=== PATIENT | female | born 1985 | race Hispanic/Latino ===

== ENCOUNTER 2018-06-04 22:05 | Emergency (ER) | payer SELFPAY ==
[2018-06-04] MEDS: Sodium Chloride 0.9% 1,000 ML IV ONE (22:52)
--- NOTE | 2018-06-04 22:55 | C.PDOC ---
History Of Present Illness 33 y/o female presents to the ER c/o abdominal bloating, associated with nausea, constipation and vomiting. Pt reports this has been on-going since April but recently worsened in the past 1 week. She states she is unable to tolerate PO. Patient's last bowel movement was x2 days ago. She denies fever, chills, diarrhea, dysuria, hematuria, vaginal bleeding/discharge. Time Seen by Provider: 06/04/18 22:17 Chief Complaint (Nursing): Abdominal Pain History Per: Patient History/Exam Limitations: no limitations Onset/Duration Of Symptoms: Days (x1week), Worse Since Current Symptoms Are (Timing): Still Present Severity: Moderate Past Medical History Reviewed: Historical Data, Nursing Documentation, Vital Signs Vital Signs: Last Vital Signs Temp 98.4 F 06/04/18 22:11 Pulse 99 H 06/04/18 22:11 Resp 20 06/04/18 22:11 BP 122/86 06/04/18 22:11 Pulse Ox 100 06/04/18 22:11 - Medical History PMH: No Chronic Diseases Family History: States: No Known Family Hx - Social History Hx Alcohol Use: Yes Hx Substance Use: No - Immunization History Hx Tetanus Toxoid Vaccination: No Hx Influenza Vaccination: Yes Hx Pneumococcal Vaccination: No Review Of Systems Constitutional: Negative for: Fever, Chills Gastrointestinal: Positive for: Nausea, Vomiting, Constipation, Other (abdominal bloating ). Negative for: Abdominal Pain, Diarrhea Genitourinary: Negative for: Dysuria, Hematuria, Vaginal Discharge, Vaginal Bleeding Skin: Negative for: Rash Physical Exam - Physical Exam Appears: Well, Non-toxic, In Acute Distress (uncomfortable ), Other (actively vomiting ) Skin: Warm, Dry Oral Mucosa: Moist Chest: Symmetrical Cardiovascular: Rhythm Regular Respiratory: Normal Breath Sounds, No Rales, No Rhonchi, No Wheezing Gastrointestinal/Abdominal: Bowel Sounds, Soft, Tenderness (mild tenderness to palpation at epigastric and right periumbilical area ), No Distention, No Guarding, No Rebound Neurological/Psych: Oriented x3 ED Course And Treatment - Laboratory Results Result Diagrams: 06/04/18 22:52 06/04/18 22:52 O2 Sat by Pulse Oximetry: 100 (RA) Pulse Ox Interpretation: Normal - Other Rad obs series Xray X-Ray: Interpreted by Me, Viewed By Me (no air fluid levels) Progress Note: Blood work, UA, Upreg and obstructive series ordered and reviewed. Patient given IV NS bolus, IV zofran. 12:20am - Patient reassessed, is resting comfortably and states she feels better. On exam, abdomen is soft and nontender. Patient given Rxs for Colace, Mag citrate and Phenergan. She was instructed to follow up in medical clinic in 1-2 days, and with GI as soon as possible. She understands she should return to ED if symptoms worsen. Reevaluation Time: 23:20 Reassessment Condition: Unchanged (Patient continues to have nausea, vomiting and abdominal burning - IV reglan and IV pepcid given.) Disposition Counseled Patient/Family Regarding: Studies Performed, Diagnosis, Need For Followup, Rx Given - Disposition Referrals: [facility] [Outside] Disposition: HOME/ ROUTINE Disposition Time: 00:20 Condition: STABLE Additional Instructions: FOLLOW UP WITH MEDICAL CLINIC IN 1-2 DAYS, AND WITH DISTRIBUTION AGENT WITHIN 1 WEEK DRINK PLENTY OF CLEAR FLUIDS USE MEDICATIONS NEEDED RETURN TO ER IF SYMPTOMS WORSEN Prescriptions: Docusate [Colace] 100 mg PO DAILY #30 cap Magnesium Citrate [Citrate of Mag] 300 ml PO ONCE PRN #1 bottle PRN Reason: Constipation Promethazine [Phenergan Tab] 25 mg PO Q6 PRN #15 tab PRN Reason: Nausea/Vomiting Instructions: Constipation, Adult (DC), Nausea and Vomiting, Adult (DC) Forms: [employer] (Azeri) Print Language: SINHALA - Clinical Impression Clinical Impression: Abdominal pain, Nausea, Vomiting, Constipation - Scribe Statement The provider has reviewed the documentation as recorded by the Fidel Martinez Do Provider Attestation: All medical record entries made by the Johnibblake were at my direction and personally dictated by me. I have reviewed the chart and agree that the record accurately reflects my personal performance of the history, physical exam, medical decision making, and the department course for this patient. I have also personally directed, reviewed, and agree with the discharge instructions and disposition.
[2018-06-04 22:56] LABS: BASO # 0.1 K/uL (0.0-0.2); BASO % 1.1 % (0.0-2.0); EOS # 0.1 K/uL (0.0-0.7); EOS % 1.4 % (0.0-4.0); HEMOGLOBIN 14.1 g/dL (11.0-16.0); LYMPH # 2.1 K/uL (1.0-4.3); LYMPH % 26.7 % (20.0-40.0); MEAN CELL VOLUME 92.1 fL (81.0-99.0); MEAN CORPUSCULAR HEMOGLOBIN 30.8 pg (27.0-31.0); MEAN CORPUSCULAR HGB CONC 33.4 g/dL (33.0-37.0); MEAN PLATELET VOLUME 9.2 fL (7.2-11.7); MONO # 0.4 K/uL (0.0-0.8); MONO % 5.5 % (0.0-10.0); NEUT # 5.2 K/uL (1.8-7.0); NEUT % 65.3 % (50.0-75.0); RBC 4.57 Mil/uL (3.80-5.20); RED CELL DISTRIBUTION WIDTH 12.2 % (11.5-14.5)
[2018-06-04 23:18] LABS: ALB/GLOB RATIO 1.4 (1.0-2.1); ALBUMIN 4.7 g/dL (3.5-5.0); ALT/SGPT 19 U/L (9-52); AST/SGOT 25 U/L (14-36); BLOOD UREA NITROGEN 12 mg/dL (7-17); CALCIUM 9.7 mg/dl (8.6-10.4); GFR NON-AFRICAN AMERICAN > 60; LIPASE 46 U/L (23-300)
[2018-06-04 23:22] LABS: HCG,QUALITATIVE URINE NEGATIVE (NEGATIVE)
[2018-06-04 23:30] LABS: SQUAMOUS EPITHIAL 22 /hpf (0-5); URINE BACTERIA FEW (<OCC); URINE BILIRUBIN NEGATIVE (NEGATIVE); URINE BLOOD NEGATIVE (NEGATIVE); URINE CLARITY Hazy (Clear); URINE COLOR Yellow (YELLOW); URINE GLUCOSE (UA) NORMAL (Normal); URINE LEUKOCYTE ESTERASE NEG Leu/uL (Negative); URINE PROTEIN NEGATIVE (NEGATIVE); URINE UROBILINOGEN NORMAL mg/dL (0.2-1.0)
[2018-06-05] MEDS: Potassium Chloride 20 mEq ER Tab PO STA (00:19)
[2018-06-05] MEDS ORDERED: Potassium Chloride 20 mEq ER Tab PO ONE (00:20)
[2018-06-05 00:26] VITALS: BP 116/67; PULSE 73; RESP 18; TEMP 98.1
--- NOTE | 2018-06-05 10:53 | RAD ---
Date of service: 06/04/2018 PROCEDURE: Radiographs of the chest and abdomen (obstructive series) HISTORY: ABD DISTENSION, NAUSEA/VOMITING COMPARISON: No prior. TECHNIQUE: AP radiograph of the chest, with upright and supine radiographs of the abdomen. FINDINGS: CHEST: Lungs: Clear. Cardiovascular: Normal size heart. No pulmonary vascular congestion. No aortic atherosclerotic calcification present Pleura: No pleural fluid. No pneumothorax. Other findings: None. ABDOMEN AND PELVIS: Bowel: Unremarkable bowel gas pattern. No evidence of mechanical obstruction. Free air: None. Bones: Unremarkable. Other findings: None. IMPRESSION: Unremarkable radiographs of chest and abdomen. No evidence of mechanical bowel obstruction.
[2018-06-10 16:33] VITALS: O2SAT 100
== END 2018-06-05 00:32 | disposition home or self-care (01) ==
LOC: C.ER 22:05
DX: R10.13 Epigastric pain (principal); R11.2 Nausea with vomiting, unspecified
CPT/HCPCS: 74022; 80053; 81001; 83690; 84703; 85025; 96361; 96374; 96375; 99284; J2405; J2765; J7030

== ENCOUNTER 2018-10-02 19:01 | Emergency (ER) | payer MEDICAID ==
[2018-10-02 19:09] VITALS: BP 125/78; PULSE 97; RESP 16; TEMP 98.6; O2SAT 97
[2018-10-02] MEDS ORDERED: Naproxen 550 mg Tab PO STA (19:36)
[2018-10-02] MEDS ORDERED: Bacitracin 500 Units/gm Oint Foilpak UD ONE (19:40)
[2018-10-02] MEDS ORDERED: Naproxen 550 mg Tab PO ONE (19:41)
--- NOTE | 2018-10-02 20:31 | C.PDOC ---
History Of Present Illness 33 year old female presents to the ED complaining of left thumb pain for 9 days but worsening for the past 2 days. States she does not recall if she had any trauma to that area. Reports pain is 6/10 and radiates to the wrist. Reports associated numbness and tingling to left thumb. States she has been taking Advil with minimal relief. Admits to typing and writing often on social media. She is right hand dominant. Time Seen by Provider: 10/02/18 19:11 Chief Complaint (Nursing): Finger,Hand,&Wrist History Per: Patient History/Exam Limitations: no limitations Onset/Duration Of Symptoms: Days (9) Current Symptoms Are (Timing): Still Present Quality: Burning Severity: Severe Exacerbating Factor(s): Movement Recent travel outside of the [place]: No Past Medical History Reviewed: Historical Data, Nursing Documentation, Vital Signs Vital Signs: Last Vital Signs Temp 98.6 F 10/02/18 19:05 Pulse 97 H 10/02/18 19:05 Resp 16 10/02/18 19:05 BP 125/78 10/02/18 19:05 Pulse Ox 97 10/02/18 19:05 - Medical History PMH: Migraine Surgical History: No Surg Hx Family History: States: No Known Family Hx - Social History Hx Alcohol Use: Yes Hx Substance Use: No - Immunization History Hx Tetanus Toxoid Vaccination: No Hx Influenza Vaccination: Yes Hx Pneumococcal Vaccination: No Review Of Systems Constitutional: Negative for: Fever, Chills Musculoskeletal: Positive for: Hand Pain (left thumb). Negative for: Neck Pain, Arm Pain Skin: Negative for: Rash, Bruising Neurological: Positive for: Numbness (left thumb ), Other (tingling in left thumb ). Negative for: Headache, Dizziness Physical Exam - Physical Exam Appears: Non-toxic, No Acute Distress Skin: Warm, Dry, No Rash Head: Atraumatic, Normacephalic Eye(s): bilateral: Normal Inspection Neck: Normal ROM, Supple Chest: Symmetrical Cardiovascular: Rhythm Regular Respiratory: Normal Breath Sounds, No Rales, No Rhonchi, No Wheezing Extremity: No Normal ROM (limited secondary to pain, painful abduction of left thumb), Tenderness (tenderness along radial aspect of wrist), Capillary Refill (less than 2 sec to left hand ), No Deformity, No Swelling, Other (negative phalen test ) Extremity: Bilateral: Atraumatic, Normal Color And Temperature Pulses: Left Brachial: Normal, Right Brachial: Normal, Left Radial: Normal, Right Radial: Normal Neurological/Psych: Oriented x3, Normal Speech, Normal Motor, Normal Sensation Gait: Steady ED Course And Treatment O2 Sat by Pulse Oximetry: 97 (RA) Pulse Ox Interpretation: Normal - Other Rad left thumb X-Ray: Viewed By Me, Read By Radiologist Interpretation: Accession No. : [id number]. Patient Name / ID : ARACELI SANTIAGO / [id number]. Exam Date : 10/02/2018 19:39:05 ( Approved ). Study Comment : Sex / Age : F / 33Y. Creator : Feli Del Valle MD. Dictator : Feli Del Valle MD. Flight Service Agent : Set Key Driver : Feli Del Valle MD. Approver2 : Report Date : 10/02/2018 21:04:43. My Comment : . Date of service: 10/02/2018. PROCEDURE: Left Thumb radiographs. HISTORY: pain. COMPARISON: None. TECHNIQUE: AP radiograph of the left hand, as well as spot oblique and lateral images of thumb were obtained. 4 views obtained. FINDINGS: LEFT THUMB: Normal left thumb, without acute displaced fracture or focal lesion. Remainder of the left hand (as seen on the AP view) grossly unremarkable. JOINTS: Normal. SOFT TISSUES: Normal. OTHER FINDINGS: None. IMPRESSION: No acute fracture or dislocation. Medical Decision Making Medical Decision Making: Plan - Naproxen 550mg PO - XR left hand XR is negative for fractures or dislocations. Thumb spica splint applied to immobilize thumb since current brace was not beneficial. On reassessment, patient is resting comfortably, and is in no acute distress. Patient was instructed to follow up with physician/clinic in 1-2 days for further evaluation. MRI may be warranted if pain persists. Disposition Counseled Patient/Family Regarding: Studies Performed, Diagnosis, Need For Followup, Rx Given - Disposition Referrals: Pablito Laura MD [Medical Doctor] - Disposition: HOME/ ROUTINE Disposition Time: 20:35 Condition: IMPROVED Additional Instructions: Continue Naproxen twice a day as needed for pain Rest, Ice, Compression, and Elevation Follow up with PMD/ [facility]hto in 1-2 days if pain persists Return to the ED if symptoms worsen Prescriptions: Naproxen [Naprosyn] 500 mg PO BID #30 tablet Instructions: De Quervain's Tenosynovitis Forms: [employer] (Yi) - Clinical Impression Clinical Impression: Pain of left thumb, Tenosynovitis, de Quervain - PA / PLASTER MODEL AND MOLD MAKER / Resident Statement MD/DO has reviewed & agrees with the documentation as recorded. - Scribe Statement The provider has reviewed the documentation as recorded by the Johnibblake Bradshaw All medical record entries made by the Fidel were at my direction and personally dictated by me. I have reviewed the chart and agree that the record accurately reflects my personal performance of the history, physical exam, medical decision making, and the department course for this patient. I have also personally directed, reviewed, and agree with the discharge instructions and disposition.
--- NOTE | 2018-10-02 21:08 | RAD ---
Date of service: 10/02/2018 PROCEDURE: Left Thumb radiographs. HISTORY: pain COMPARISON: None. TECHNIQUE: AP radiograph of the left hand, as well as spot oblique and lateral images of thumb were obtained. 4 views obtained. FINDINGS: LEFT THUMB: Normal left thumb, without acute displaced fracture or focal lesion. Remainder of the left hand (as seen on the AP view) grossly unremarkable. JOINTS: Normal. SOFT TISSUES: Normal. OTHER FINDINGS: None. IMPRESSION: No acute fracture or dislocation.
== END 2018-10-02 20:44 | disposition home or self-care (01) ==
LOC: C.ER 19:01
DX: M65.4 Radial styloid tenosynovitis [de Quervain] (principal); M79.645 Pain in left finger(s)

== ENCOUNTER 2018-10-12 19:26 | Emergency (ER) | payer MEDICAID ==
[2018-10-12 20:00] VITALS: TEMP 98.2
[2018-10-12] MEDS ORDERED: Sodium Chloride 0.9% 1,000 ML IV ONE (20:33)
[2018-10-12] MEDS ORDERED: Iohexol 240 (50 ml) PO ONE (20:35)
--- NOTE | 2018-10-12 20:37 | C.PDOC ---
History Of Present Illness 33 year old female presents to the ED for evaluation of black tarry stools that started at 16:30 today. Patient denies fever, chills, headache, dizziness, CP, SOB, palpitations, nausea, vomit, diarrhea, abdominal pain, weakness, numbness. Chief Complaint (Nursing): GI Problem History Per: Patient History/Exam Limitations: no limitations Onset/Duration Of Symptoms: Hrs (16:30) Current Symptoms Are (Timing): Still Present Number Of Bleeding Episodes: One Quality Of Discomfort: "Pain" Associated Symptoms: Melena Recent travel outside of the [place]: No Additional History Per: Patient Past Medical History Reviewed: Historical Data, Nursing Documentation, Vital Signs Vital Signs: Last Vital Signs Temp 98.2 F 10/12/18 19:46 Pulse 90 10/12/18 19:46 Resp 20 10/12/18 19:46 BP 127/82 10/12/18 19:46 Pulse Ox 98 10/12/18 19:46 Primary Care Provider: Shelia Costello R - Medical History PMH: Migraine Surgical History: No Surg Hx Family History: States: Unknown Family Hx - Social History Hx Alcohol Use: Yes Hx Substance Use: No - Immunization History Hx Tetanus Toxoid Vaccination: No Hx Influenza Vaccination: Yes Hx Pneumococcal Vaccination: No Review Of Systems Constitutional: Negative for: Fever, Chills Eyes: Negative for: Vision Change Cardiovascular: Negative for: Chest Pain, Palpitations Respiratory: Negative for: Cough, Shortness of Breath Gastrointestinal: Positive for: Melena. Negative for: Nausea, Vomiting, Abdominal Pain Skin: Negative for: Rash Neurological: Negative for: Weakness, Numbness, Headache, Dizziness Physical Exam - Physical Exam Appears: Non-toxic, No Acute Distress Skin: Normal Color, Warm, Dry Head: Atraumatic, Normacephalic Eye(s): bilateral: Normal Inspection Oral Mucosa: Moist Neck: Normal ROM, Supple Chest: Symmetrical Cardiovascular: Rhythm Regular Respiratory: Normal Breath Sounds, No Rales, No Rhonchi, No Wheezing Gastrointestinal/Abdominal: Soft, Tenderness (bilateral lower quadrants, moslty hypogastric), No Guarding, No Rebound Rectal: Heme Negative, Other (no active bleeding) Extremity: Normal ROM, No Tenderness, No Swelling Neurological/Psych: Oriented x3, Normal Speech, Normal Cognition Gait: Steady ED Course And Treatment - Laboratory Results Result Diagrams: 10/12/18 20:47 10/12/18 20:47 O2 Sat by Pulse Oximetry: 98 (ON RA) Pulse Ox Interpretation: Normal - CT Scan/US CT abd/pelvis Other Rad Studies (CT/US): Read By Radiologist, Radiology Report Reviewed CT/US Interpretation: EXAM: CT Abdomen and Pelvis with IV contrast. CLINICAL HISTORY: PATIEN WITH HX OF GI PROBLEMS PASSED LARGE BLOOD CLOT TODAY TOLD TO REPORT TO ER. TECHNIQUE: Axial computed tomography images of the abdomen and pelvis with intravenous contrast. 0.00 mGy-cm. CONTRAST: With; OMNI 240 & VISI 320 100MLS. COMPARISON: None provided. FINDINGS: LUNG BASES: Minimal atelectasis near the lung bases. LIVER: Mild diffuse fatty infiltration of liver. GALLBLADDER AND BILE DUCTS: The gallbladder appears within normal limits. No radioopaque gallstones are seen. No biliary ductal dilatation is evident. PANCREAS: Unremarkable. SPLEEN: Unremarkable. ADRENAL GLANDS: Unremarkable. KIDNEYS, URETERS, AND BLADDER: The kidneys appear within normal limits. There is no hydronephrosis or hydroureter. No urinary calculi are seen. STOMACH AND BOWEL: Unremarkable appearance of the stomach and bowel. No evidence of bowel obstruction. No evidence suggesting enteritis or colitis. APPENDIX: Normal appendix in the right lower quadrant. PERITONEUM: No free fl uid. No free air. LYMPH NODES: No lymphadenopathy is evident. REPRODUCTIVE: Unremarkable as visualized. VASCULATURE: No evidence of abdominal aortic aneurysm. BONES: No aggressive appearing osseous lesion. No acute osseous pathology evident. IMPRESSION: 1. Mild diffuse fatty infiltration of liver. 2. Normal appendix in the right lower quadrant. 3. No definite acute pathology identified in the abdomen or pelvis. . Electronically signed on Oct 12, 2018 11:53:44 PM EDT by: Hoang Beaver M.D., Certified by [facility], Diagnostic Radiology Medical Decision Making Medical Decision Making: Plan: * CT abd/pelvis * Labs * IV fluids Disposition Counseled Patient/Family Regarding: Diagnosis - Disposition Referrals: [facility] [Outside] Disposition: HOME/ ROUTINE Disposition Time: 00:05 Condition: STABLE Instructions: Acute Abdomen (Belly Pain) Forms: [employer] (Zimbabwean) - POA Present On Arrival: None - Clinical Impression Clinical Impression: Abdominal pain - Scribe Statement The provider has reviewed the documentation as recorded by the Scribe Reyes Carrillo All medical record entries made by the Fidel were at my direction and personally dictated by me. I have reviewed the chart and agree that the record accurately reflects my personal performance of the history, physical exam, medical decision making, and the department course for this patient. I have also personally directed, reviewed, and agree with the discharge instructions and disposition.
[2018-10-12 20:59] LABS: SQUAMOUS EPITHIAL 1 /hpf (0-5); URINE BILIRUBIN NEGATIVE (NEGATIVE); URINE BLOOD NEGATIVE (NEGATIVE); URINE CLARITY Hazy (Clear); URINE COLOR Yellow (YELLOW); URINE GLUCOSE (UA) NORMAL (Normal); URINE LEUKOCYTE ESTERASE NEG Leu/uL (Negative); URINE PROTEIN NEGATIVE (NEGATIVE); URINE UROBILINOGEN NORMAL mg/dL (0.2-1.0)
[2018-10-12 21:00] LABS: HCG,QUALITATIVE URINE NEGATIVE (NEGATIVE); INR 1.1; PROTHROMBIN TIME 11.9 SECONDS (9.7-12.2)
[2018-10-12 21:02] LABS: BASO # 0.1 K/uL (0.0-0.2); EOS # 0.1 K/uL (0.0-0.7); EOS % 1.6 % (0.0-4.0); HEMOGLOBIN 13.6 g/dL (11.0-16.0); LYMPH % 23.8 % (20.0-40.0); MEAN CELL VOLUME 94.1 fL (81.0-99.0); MEAN CORPUSCULAR HEMOGLOBIN 31.9 pg (27.0-31.0); MEAN CORPUSCULAR HGB CONC 33.9 g/dL (33.0-37.0); MEAN PLATELET VOLUME 9.1 fL (7.2-11.7); MONO # 0.4 K/uL (0.0-0.8); MONO % 5.1 % (0.0-10.0); NEUT # 5.9 K/uL (1.8-7.0); NEUT % 68.5 % (50.0-75.0); RBC 4.25 Mil/uL (3.80-5.20); RED CELL DISTRIBUTION WIDTH 13.2 % (11.5-14.5); WHITE BLOOD COUNT 8.6 K/uL (4.8-10.8)
[2018-10-12 21:11] LABS: ALB/GLOB RATIO 1.6 (1.0-2.1); ALBUMIN 4.5 g/dL (3.5-5.0); ALT/SGPT 20 U/L (9-52); AST/SGOT 23 U/L (14-36); BLOOD UREA NITROGEN 13 mg/dL (7-17); LIPASE 71 U/L (23-300)
[2018-10-12 21:16] LABS: GFR NON-AFRICAN AMERICAN > 60
[2018-10-12] MEDS ORDERED: Iohexol 240 (50 ml) ONE (21:33)
[2018-10-12] MEDS ORDERED: Iodixanol 320 MG/ML 100 ML BOTTLE IV ONE (21:33)
[2018-10-13 00:35] VITALS: BP 110/70; PULSE 78; RESP 16; O2SAT 99
--- NOTE | 2018-10-13 09:29 | CT ---
Date of service: 10/12/2018 PROCEDURE: CT Abdomen and Pelvis with contrast HISTORY: Abdominal pain COMPARISON: None. TECHNIQUE: Multiple contiguous axial images were performed through the abdomen and pelvis with the use of intravenous contrast. Subsequently, sagittal and coronal reformatted images were obtained. Radiation dose: Total exam DLP = 973.91 mGy-cm. This CT exam was performed using one or more of the following dose reduction techniques: Automated exposure control, adjustment of the mA and/or kV according to patient size, and/or use of iterative reconstruction technique. FINDINGS: LOWER THORAX: Mild atelectasis at the lung bases. LIVER: Mild fatty infiltration of the liver. GALLBLADDER AND BILE DUCTS: Unremarkable. PANCREAS: Unremarkable. No gross lesion or ductal dilatation. SPLEEN: Unremarkable. ADRENALS: Unremarkable. No mass. KIDNEYS AND URETERS: Unremarkable. No hydronephrosis. No solid mass. VASCULATURE: Unremarkable. No aortic aneurysm. No aortic atherosclerotic calcification or mural plaque present. BOWEL: Unremarkable. No obstruction. No gross mural thickening. Colonic diverticulosis. APPENDIX: Normal appendix. PERITONEUM: Unremarkable. No free fluid. No free air. LYMPH NODES: Unremarkable. No enlarged lymph nodes. BLADDER: Unremarkable. REPRODUCTIVE: Heterogeneous uterus and bilateral adnexa. BONES: Degenerative changes in the spine. Posterior disc osteophyte complex at the L5-S1 level. OTHER FINDINGS: None. IMPRESSION: Mild fatty infiltration of the liver. Mild atelectasis at the lung bases. If GI bleeding persists, consider correlation with a nuclear medicine GI bleeding scan. A preliminary report was generated at 11:53 p.m. on 10/12/[address] Hoang Beaver from [employer]
== END 2018-10-13 00:35 | disposition home or self-care (01) ==
LOC: C.ER 19:26
DX: R10.9 Unspecified abdominal pain (principal)
CPT/HCPCS: 74177; 80053; 81001; 83690; 84703; 85025; 85610; 85730; 96361; 96374; 96375; 99283; G0328; J1885; J2405; J7030; Q9966; Q9967

== ENCOUNTER 2018-10-27 22:09 | Inpatient (IN) | payer MEDICAID ==
[2018-10-27] MEDS ORDERED: Sodium Chloride 0.9% 2,000 ML IV ONE (22:26)
[2018-10-27] MEDS ORDERED: Pantoprazole 80 MG in Sodium Chloride 0.9% 100 ML IV STA (22:26)
--- NOTE | 2018-10-27 22:26 | C.PDOC ---
History Of Present Illness Patient presents complaining of black tarry stools x3 today. Patient reports having endoscopy yesterday and gastric/duodenal biopsy for recurrent abdominal pain. Patient states she was diagnosed with gastroparesis by her GI. Denies fever, chills, nausea, or vomiting. Time Seen by Provider: 10/27/18 22:25 Chief Complaint (Nursing): Abdominal Pain History Per: Patient History/Exam Limitations: no limitations Onset/Duration Of Symptoms: Hrs Current Symptoms Are (Timing): Still Present Severity: Severe Pain Scale Rating Of: 7 Associated Symptoms: Other (Black tarry stools). denies: Fever, Chills, Nausea, Vomiting Exacerbating Factors: None Alleviating Factors: None Last Bowel Movement: Today Recent travel outside of the [place]: No Abnormal Vaginal Bleeding: No Past Medical History Reviewed: Historical Data, Nursing Documentation, Vital Signs Vital Signs: Last Vital Signs Temp 99.1 F 10/27/18 22:18 Pulse 132 H 10/27/18 22:18 Resp 18 10/27/18 22:18 BP 112/81 10/27/18 22:18 Pulse Ox 96 10/27/18 22:18 Primary Care Provider: Shelia Costello R - Medical History PMH: Migraine Family History: States: No Known Family Hx - Social History Hx Alcohol Use: Yes Hx Substance Use: No - Immunization History Hx Tetanus Toxoid Vaccination: No Hx Influenza Vaccination: Yes Hx Pneumococcal Vaccination: No Review Of Systems Constitutional: Negative for: Fever, Chills Cardiovascular: Negative for: Chest Pain, Palpitations Respiratory: Negative for: Cough, Shortness of Breath Gastrointestinal: Positive for: Other (Black tarry stools). Negative for: Nausea, Vomiting Neurological: Negative for: Weakness, Numbness Physical Exam - Physical Exam Appears: No Acute Distress, Other (Speaking in complete sentences) Skin: Warm, Dry Head: Normacephalic Eye(s): bilateral: Conjunctiva Pale Oral Mucosa: Dry Neck: Trachea Midline, Supple Chest: Symmetrical, No Tenderness Cardiovascular: Rhythm Regular Respiratory: No Rales, No Rhonchi, No Wheezing Gastrointestinal/Abdominal: Soft, No Tenderness Rectal: Other (No stool or testable material in the vault, chaperoned by ED Gonzalez.) Back: No CVA Tenderness Neurological/Psych: Oriented x3 ED Course And Treatment - Laboratory Results Result Diagrams: 10/27/18 23:04 10/27/18 23:04 ECG: Interpreted By Me, Viewed By Me ECG Rhythm: Sinus Rhythm (99), Nonspecific Changes O2 Sat by Pulse Oximetry: 96 (Room air) Pulse Ox Interpretation: Normal Progress Note: CT abd/pel, blood work, EKG, obstructive series, occult blood test, and urinalysis ordered. IV fluids, protonix, and zofran administered. pt had episode of hemoptysis. approx 80 cc. 12:10 AM pt developed luq pain. Sharp, non radiating. abd soft, no rebound or guarding, vitals stable Critical Care Time - Critical Care Note Total Time (in mins): 30 Documented critical care: time excludes all time spent performing seperately billable procedures. Disposition Discussed With Dr.: Michelle Mix Comment: accepted the pt on his service and took over the care at 2 AM Doctor Will See Patient In The: Hospital Counseled Patient/Family Regarding: Studies Performed, Diagnosis - Disposition Disposition: HOSPITALIZED Disposition Time: 22:26 Condition: FAIR Forms: [employer] (Sudanese) - POA Present On Arrival: None - Clinical Impression Clinical Impression: Abdominal pain, Nausea, Hemoptysis, GI bleed - Scribe Statement The provider has reviewed the documentation as recorded by the Scribe Bert Prescott All medical record entries made by the Scribe were at my direction and personally dictated by me. I have reviewed the chart and agree that the record accurately reflects my personal performance of the history, physical exam, medical decision making, and the department course for this patient. I have also personally directed, reviewed, and agree with the discharge instructions and disposition. Decision To Admit - Pt Status Changed To: Hospital Disposition Of: Inpatient - Admit Certification Admit to Inpatient:: After my assessment, the patient will require hospitalization for at least two midnights. This is because of the severity of symptoms shown, intensity of services needed, and/or the medical risk in this patient being treated as an outpatient. - InPatient: Physician Admission Certification:: After my assessment, the patient will require hospitalization for at least two midnights. This is because of the severity of symptoms shown, intensity of services needed, and/or the medical ris k in this patient being treated as an outpatient. - . Bed Request Type: Telemetry Admitting Physician: Jayeshkuma S Mix Patient Diagnosis: Abdominal pain, Nausea, Hemoptysis, GI bleed
[2018-10-27] MEDS ORDERED: Sodium Chloride 0.9% 2,000 ML ONE (23:02)
[2018-10-27 23:07] LABS: BASO # 0.1 K/uL (0.0-0.2); BASO % 0.8 % (0.0-2.0); EOS # 0.1 K/uL (0.0-0.7); EOS % 1.3 % (0.0-4.0); LYMPH # 2.9 K/uL (1.0-4.3); LYMPH % 33.2 % (20.0-40.0); MEAN CELL VOLUME 94.4 fL (81.0-99.0); MEAN CORPUSCULAR HEMOGLOBIN 32.4 pg (27.0-31.0); MEAN CORPUSCULAR HGB CONC 34.3 g/dL (33.0-37.0); MEAN PLATELET VOLUME 9.2 fL (7.2-11.7); MONO # 0.5 K/uL (0.0-0.8); MONO % 5.3 % (0.0-10.0); NEUT # 5.2 K/uL (1.8-7.0); NEUT % 59.4 % (50.0-75.0); RBC 3.7 Mil/uL (3.80-5.20); RED CELL DISTRIBUTION WIDTH 12.9 % (11.5-14.5); WHITE BLOOD COUNT 8.8 K/uL (4.8-10.8)
[2018-10-27 23:15] LABS: INR 1.1; PARTIAL THROMBOPLASTIN TIME 34.1 SECONDS (21-34); PROTHROMBIN TIME 11.7 SECONDS (9.7-12.2)
[2018-10-27 23:25] LABS: ALB/GLOB RATIO 1.4 (1.0-2.1); ALBUMIN 4.3 g/dL (3.5-5.0); ALT/SGPT 16 U/L (9-52); AST/SGOT 22 U/L (14-36); BLOOD UREA NITROGEN 27 mg/dL (7-17); CALCIUM 9.2 mg/dl (8.6-10.4); GFR NON-AFRICAN AMERICAN > 60; LIPASE 62 U/L (23-300)
[2018-10-27 23:38] LABS: HCG,QUALITATIVE URINE NEGATIVE (NEGATIVE)
[2018-10-28 00:01] LABS: SQUAMOUS EPITHIAL 1 /hpf (0-5); URINE BACTERIA RARE (<OCC); URINE BILIRUBIN NEGATIVE (NEGATIVE); URINE BLOOD NEGATIVE (NEGATIVE); URINE CLARITY Hazy (Clear); URINE COLOR YELLOW (YELLOW); URINE GLUCOSE (UA) NORMAL (Normal); URINE LEUKOCYTE ESTERASE NEG Leu/uL (Negative); URINE PROTEIN NEGATIVE (NEGATIVE); URINE UROBILINOGEN NORMAL mg/dL (0.2-1.0)
[2018-10-28] MEDS ORDERED: Pantoprazole 80 MG in Sodium Chloride 0.9% 100 ML IVP SCH (00:15)
[2018-10-28] MEDS ORDERED: Iodixanol 320 MG/ML 100 ML BOTTLE IV ONE (00:40)
[2018-10-28] MEDS ORDERED: Sodium Chloride 0.9% 1,000 ML IV ONE (02:03)
[2018-10-28 02:06] VITALS: RESP 20
--- NOTE | 2018-10-28 08:45 | CP.PCM.CON ---
<Kely Lamar - Last Filed: 10/28/18 08:48> History of Present Illness - History of Present Illness History of Present Illness: GI Fellow PGY 5 Consult Note This is a 33yF with a pmhx of bipolar disorder, herpes, gastroparesis presenting iwth complaints of black colored stool for 1 day. Pt reports she had a EGD with her GI doctor on Thursday at [facility] and the next day had two black colored BM and came to the ER. In the ER she had one episode of vomiting. She reports having an EGD due to chronic abd pain, N/V since 04/2018 and on EGD found to have gastroparesis and is scheduled for gastric emptying study. She reports having biopsy for celiac and H.pylori on EGD. No rectal bleeding since being admitted. ROS: A 12pt ROS was negative except as above PmHx: As stated in HPI PsHx: Denies FHx: Denies GI malignancy SHx: Social eoth, denies drugs Past Patient History - Past Social History Smoking Status: Never Smoked - NEUROLOGICAL Hx Migraine: Yes - MUSCULOSKELETAL/RHEUMATOLOGICAL Hx Falls: No - GASTROINTESTINAL Hx Constipation: Yes Other/Comment: recurrent abd pain -had endoscopy 10-26-2018 - PSYCHIATRIC Hx Substance Use: No - SURGICAL HISTORY Hx Surgeries: No - ANESTHESIA Hx Anesthesia: No Meds Allergies/Adverse Reactions: Allergies Allergy/AdvReac Type Severity Reaction Status Date / Time No Known Allergies Allergy Verified 10/27/18 22:22 - Medications Medications: Current Medications Pantoprazole Sodium (Protonix Ec Tab) 40 mg PO DAILY [facility] Physical Exam - Constitutional Appears: Non-toxic, No Acute Distress - Head Exam Head Exam: ATRAUMATIC, NORMAL INSPECTION, NORMOCEPHALIC - Eye Exam Eye Exam: EOMI, Normal appearance, PERRL Pupil Exam: PERRL - ENT Exam ENT Exam: Mucous Membranes Moist, Normal Exam - Neck Exam Neck exam: Positive for: Full Rom, Normal Inspection - Respiratory Exam Respiratory Exam: Clear to Auscultation Bilateral, NORMAL BREATHING PATTERN - Cardiovascular Exam Cardiovascular Exam: REGULAR RHYTHM, RRR, +S1, +S2 - GI/Abdominal Exam GI & Abdominal Exam: Normal Bowel Sounds, Soft. absent: Distended, Firm, Guarding - Rectal Exam Rectal Exam: NORMAL INSPECTION. absent: Black Stool, Bloody Stool, Hemorrhoids - Back Exam Back exam: NORMAL INSPECTION - Neurological Exam Neurological exam: Alert, Normal Gait, Oriented x3 - Psychiatric Exam Psychiatric exam: Normal Affect, Normal Mood - Skin Skin Exam: Dry, Intact, Normal Color, Warm Results - Vital Signs Recent Vital Signs: Last Vital Signs Temp 98.8 F 10/28/18 08:21 Pulse 103 H 10/28/18 08:21 Resp 20 10/28/18 08:21 BP 99/58 L 10/28/18 08:21 Pulse Ox 97 10/28/18 08:21 - Labs Result Diagrams: 10/27/18 23:04 10/27/18 23:04 Labs: Laboratory Results - last 24 hr 10/27/18 10/27/18 10/27/18 22:26 23:04 23:04 WBC 8.8 RBC 3.70 L Hgb 12.0 Hct 34.9 MCV 94.4 MCH 32.4 H MCHC 34.3 RDW 12.9 Plt Count 295 MPV 9.2 Neut % (Auto) 59.4 Lymph % (Auto) 33.2 [place] % (Auto) 5.3 Eos % (Auto) 1.3 Baso % (Auto) 0.8 Neut # (Auto) 5.2 Lymph # (Auto) 2.9 [place] # (Auto) 0.5 Eos # (Auto) 0.1 Baso # (Auto) 0.1 PT 11.7 INR 1.1 APTT 34.1 H Sodium Potassium Chloride Carbon Dioxide Anion Gap BUN Creatinine Est GFR ( Amer) Est GFR (Non-Af Amer) Random Glucose Calcium Total Bilirubin AST ALT Alkaline Phosphatase Total Protein Albumin Globulin Albumin/Globulin Ratio Lipase Urine Color Yellow Urine Clarity Hazy Urine pH 5.0 Ur Specific [place] 1.027 Urine Protein Negative Urine Glucose (UA) Normal Urine Ketones Trace Urine Blood Negative Urine Nitrate Negative Urine Bilirubin Negative Urine Urobilinogen Normal Ur Leukocyte Esterase Neg Urine WBC (Auto) 1 Urine RBC (Auto) 1 Ur Squamous Epith Cells 1 Urine Bacteria Rare Urine HCG, Qual Negative Stool Occult Blood Blood Type Antibody Screen 10/27/18 10/27/18 10/27/18 23:04 23:04 23:04 WBC RBC Hgb Hct MCV MCH MCHC RDW Plt Count MPV Neut % (Auto) Lymph % (Auto) [place] % (Auto) Eos % (Auto) Baso % (Auto) Neut # (Auto) Lymph # (Auto) [place] # (Auto) Eos # (Auto) Baso # (Auto) PT INR APTT Sodium 137 Potassium 3.6 Chloride 103 Carbon Dioxide 26 Anion Gap 12 BUN 27 H Creatinine 0.7 Est GFR ( Amer) > 60 Est GFR (Non-Af Amer) > 60 Random Glucose 98 Calcium 9.2 Total Bilirubin 0.3 AST 22 ALT 16 Alkaline Phosphatase 63 Total Protein 7.4 Albumin 4.3 Globulin 3.1 Albumin/Globulin Ratio 1.4 Lipase 62 Urine Color Urine Clarity Urine pH Ur Specific [place] Urine Protein Urine Glucose (UA) Urine Ketones Urine Blood Urine Nitrate Urine Bilirubin Urine Urobilinogen Ur Leukocyte Esterase Urine WBC (Auto) Urine RBC (Auto) Ur Squamous Epith Cells Urine Bacteria Urine HCG, Qual Stool Occult Blood Positive H Blood Type O NEGATIVE Antibody Screen Negative Assessment & Plan - Assessment and Plan (Free Text) Assessment: 1. FOBT+ stool 2. s/p EGD at OSH 3. Gastroparesis Plan: -Pt stable at this time with no active gI bleeding -Hgb stable, rectal exam negative -No plan for endoscopic evaluation -Dc PPI drip -Can start po PPI -Advance diet for small frequent meals -Pt needs to folow up with primary GI doctor -Please call with any questions or concerns <Armand Pacheco - Last Filed: 10/28/18 14:47> Meds - Medications Medications: Current Medications Acetaminophen/Butalbital/Caffeine (Fioricet) 1 tab PO Q12 PRN PRN Reason: Pain, moderate (4-7) Last Admin: 10/28/18 13:34 Dose: 1 tab Duloxetine HCl (Cymbalta) 60 mg PO DAILY [facility] Last Admin: 10/28/18 10:24 Dose: 60 mg Fluticasone Propionate (Flonase) 1 spr NS DAILY [facility] Last Admin: 10/28/18 10:25 Dose: 1 spr Gabapentin (Neurontin) 600 mg PO TID [facility] Last Admin: 10/28/18 13:34 Dose: 600 mg Ondansetron HCl (Zofran Inj) 4 mg IVP Q8H PRN PRN Reason: Nausea/Vomiting Last Admin: 10/28/18 14:08 Dose: 4 mg Pantoprazole Sodium (Protonix Ec Tab) 40 mg PO DAILY [facility] Last Admin: 10/28/18 10:24 Dose: 40 mg Quetiapine Fumarate (Seroquel) 50 mg PO HS [facility] Valacyclovir HCl (Valtrex) 500 mg PO DAILY [facility]; Protocol Last Admin: 10/28/18 10:27 Dose: 500 mg Results - Vital Signs Recent Vital Signs: Last Vital Signs Temp 98.8 F 10/28/18 08:21 Pulse 116 H 10/28/18 12:34 Resp 20 10/28/18 08:21 BP 99/58 L 10/28/18 08:21 Pulse Ox 97 10/28/18 08:21 - Labs Result Diagrams: 10/27/18 23:04 10/27/18 23:04 Labs: Laboratory Results - last 24 hr 10/27/18 10/27/18 10/27/18 22:26 23:04 23:04 WBC 8.8 RBC 3.70 L Hgb 12.0 Hct 34.9 MCV 94.4 MCH 32.4 H MCHC 34.3 RDW 12.9 Plt Count 295 MPV 9.2 Neut % (Auto) 59.4 Lymph % (Auto) 33.2 [place] % (Auto) 5.3 Eos % (Auto) 1.3 Baso % (Auto) 0.8 Neut # (Auto) 5.2 Lymph # (Auto) 2.9 [place] # (Auto) 0.5 Eos # (Auto) 0.1 Baso # (Auto) 0.1 PT 11.7 INR 1.1 APTT 34.1 H Sodium Potassium Chloride Carbon Dioxide Anion Gap BUN Creatinine Est GFR ( Amer) Est GFR (Non-Af Amer) Random Glucose Calcium Total Bilirubin AST ALT Alkaline Phosphatase Total Protein Albumin Globulin Albumin/Globulin Ratio Lipase Urine Color Yellow Urine Clarity Hazy Urine pH 5.0 Ur Specific [place] 1.027 Urine Protein Negative Urine Glucose (UA) Normal Urine Ketones Trace Urine Blood Negative Urine Nitrate Negative Urine Bilirubin Negative Urine Urobilinogen Normal Ur Leukocyte Esterase Neg Urine WBC (Auto) 1 Urine RBC (Auto) 1 Ur Squamous Epith Cells 1 Urine Bacteria Rare Urine HCG, Qual Negative Stool Occult Blood Blood Type Antibody Screen 10/27/18 10/27/18 10/27/18 23:04 23:04 23:04 WBC RBC Hgb Hct MCV MCH MCHC RDW Plt Count MPV Neut % (Auto) Lymph % (Auto) [place] % (Auto) Eos % (Auto) Baso % (Auto) Neut # (Auto) Lymph # (Auto) [place] # (Auto) Eos # (Auto) Baso # (Auto) PT INR APTT Sodium 137 Potassium 3.6 Chloride 103 Carbon Dioxide 26 Anion Gap 12 BUN 27 H Creatinine 0.7 Est GFR ( Amer) > 60 Est GFR (Non-Af Amer) > 60 Random Glucose 98 Calcium 9.2 Total Bilirubin 0.3 AST 22 ALT 16 Alkaline Phosphatase 63 Total Protein 7.4 Albumin 4.3 Globulin 3.1 Albumin/Globulin Ratio 1.4 Lipase 62 Urine Color Urine Clarity Urine pH Ur Specific [place] Urine Protein Urine Glucose (UA) Urine Ketones Urine Blood Urine Nitrate Urine Bilirubin Urine Urobilinogen Ur Leukocyte Esterase Urine WBC (Auto) Urine RBC (Auto) Ur Squamous Epith Cells Urine Bacteria Urine HCG, Qual Stool Occult Blood Positive H Blood Type O NEGATIVE Antibody Screen Negative Attending/Attestation - Attestation I have personally seen and examined this patient.: Yes I have fully participated in the care of the patient.: Yes I have reviewed all pertinent clinical information: Yes Notes (Text): 10/28/18 14:42 I have seen and examined patient with GI fellow. Agree with above documentation with the following additions. In brief, this is a 33 year old female with history of bipolar disorder, herpes, gastroparesis who presents to hospital with complaint of dark colored stool for the past one day. She follows with Dr. Collins at [facility] and recently underwent an EGD 2 days ago which showed gastritis and residual gastric food content suggestive of gastroparesis. She reports chronic abdominal pain for the past 8 months along with nausea and intermittent vomiting. She otherwise denies fever/chills, weight loss, or change in bowel habits. She has not had any recurrent dark colored stool since arrival to hospital. Additional physical examination: Abdomen: no palpable hepato/splenomegaly Bipolar disorder Herpes Abdominal pain, suspected gastroparesis - Advance diet as tolerated, suggest small frequent meal consumption - Anti-emetic therapy PRN - H/H stable without features of overt GI bleeding - rectal exam performed today shows no stool or blood in rectal vault - Pain control, would avoid opiate pain medication as this may worsen existing condition - No plan for GI intervention at this time, after hospital discharge patient will follow up with primary GI physician for recent EGD biopsy results. Will sign off case, please reconsult as necessary, thank you.
--- NOTE | 2018-10-28 08:46 | CT ---
Date of service: 10/28/2018 PROCEDURE: CT Abdomen and Pelvis with contrast HISTORY: abd pain, s/p endoscopy, COMPARISON: 09/25/2018 TECHNIQUE: CT scan of the abdomen and pelvis was performed after administration of intravenous contrast. Oral contrast was not administered. Coronal and sagittal reformatted images were obtained. Contrast dose: 100 mL Visipaque 320 Radiation dose: Total exam DLP = 1056.39 mGy-cm. This CT exam was performed using one or more of the following dose reduction techniques: Automated exposure control, adjustment of the mA and/or kV according to patient size, and/or use of iterative reconstruction technique. FINDINGS: LOWER THORAX: The visualized lungs are clear. LIVER: Normal in size with homogeneous enhancement. Diffuse fatty liver. No gross lesion or ductal dilatation. GALLBLADDER AND BILE DUCTS: Well distended. No calcified gallstones, wall thickening or pericholecystic fluid. PANCREAS: Normal in size with homogeneous enhancement. No gross lesion or ductal dilatation. SPLEEN: Normal in size and appearance. ADRENALS: No discrete nodule. KIDNEYS AND URETERS: Normal in size with homogeneous enhancement. No hydronephrosis. No solid mass. VASCULATURE: No aortic aneurysm. There are no aortic atherosclerotic calcifications or mural plaque present. BOWEL: Evaluation of the bowel is limited in the absence of oral contrast. There is mild circumferential mural thickening in the gastric pylorus and fluid in the duodenum. There are fluid-filled prominent small bowel loops. There is also fluid in the colon. There is mild sigmoid diverticulosis without CT evidence for acute diverticulitis. No bowel wall thickening or obstruction. APPENDIX: Normal appendix. PERITONEUM: No free fluid. No free air. LYMPH NODES: No enlarged lymph nodes. BLADDER: Well distended and normal in appearance. REPRODUCTIVE: The uterus is normal in size. BONES: No acute fracture. Within normal limits for the patient's age. OTHER FINDINGS: A pessary device is present in the lower pelvis. IMPRESSION: Findings may represent nonspecific acute infectious/inflammatory gastro enteritis and colitis in the appropriate clinical setting. A preliminary report was provided by [facility]. The final report is tagged to the PA review folder.
[2018-10-28] MEDS ORDERED: NORGESTIMATE ETHINYL ESTRADIOL PO SCH (10:00)
[2018-10-28] MEDS ORDERED: Pantoprazole 40 mg EC Tab PO SCH (10:00)
[2018-10-28] MEDS: Pantoprazole 40 mg EC Tab PO SCH (10:24)
[2018-10-28] MEDS: Fluticasone Nasal 50 mcg/Spray NS SCH (10:25)
[2018-10-28] MEDS: Apap-Butalbital-Caffeine 325-50-40mg Tab PO PRN (13:34)
--- NOTE | 2018-10-28 19:03 | CP.PCM.HP ---
Past Patient History - Past Social History Smoking Status: Never Smoked - NEUROLOGICAL Hx Migraine: Yes - MUSCULOSKELETAL/RHEUMATOLOGICAL Hx Falls: No - GASTROINTESTINAL Hx Constipation: Yes Other/Comment: recurrent abd pain -had endoscopy 10-26-2018 - PSYCHIATRIC Hx Substance Use: No - SURGICAL HISTORY Hx Surgeries: No - ANESTHESIA Hx Anesthesia: No Meds Allergies/Adverse Reactions: Allergies Allergy/AdvReac Type Severity Reaction Status Date / Time No Known Allergies Allergy Verified 10/27/18 22:22 Physical Exam - Constitutional Appears: Well - Head Exam Head Exam: ATRAUMATIC, NORMAL INSPECTION, NORMOCEPHALIC - Eye Exam Eye Exam: EOMI, Normal appearance, PERRL Pupil Exam: NORMAL ACCOMODATION, PERRL - ENT Exam ENT Exam: Mucous Membranes Moist, Normal Exam - Neck Exam Neck exam: Positive for: Normal Inspection - Respiratory Exam Respiratory Exam: Decreased Breath Sounds - Cardiovascular Exam Cardiovascular Exam: REGULAR RHYTHM, +S1, +S2 - GI/Abdominal Exam GI & Abdominal Exam: Diminished Bowel Sounds, Soft - Rectal Exam Rectal Exam: Deferred - Neurological Exam Neurological exam: Oriented x3 Results - Vital Signs Recent Vital Signs: Last Vital Signs Temp 98.3 F 10/28/18 15:00 Pulse 101 H 10/28/18 15:00 Resp 20 10/28/18 15:00 BP 104/70 10/28/18 15:00 Pulse Ox 98 10/28/18 15:00 - Labs Result Diagrams: 10/27/18 23:04 10/27/18 23:04 Labs: Laboratory Results - last 24 hr 10/27/18 10/27/18 10/27/18 22:26 23:04 23:04 WBC 8.8 RBC 3.70 L Hgb 12.0 Hct 34.9 MCV 94.4 MCH 32.4 H MCHC 34.3 RDW 12.9 Plt Count 295 MPV 9.2 Neut % (Auto) 59.4 Lymph % (Auto) 33.2 [place] % (Auto) 5.3 Eos % (Auto) 1.3 Baso % (Auto) 0.8 Neut # (Auto) 5.2 Lymph # (Auto) 2.9 [place] # (Auto) 0.5 Eos # (Auto) 0.1 Baso # (Auto) 0.1 PT 11.7 INR 1.1 APTT 34.1 H Sodium Potassium Chloride Carbon Dioxide Anion Gap BUN Creatinine Est GFR ( Amer) Est GFR (Non-Af Amer) Random Glucose Calcium Total Bilirubin AST ALT Alkaline Phosphatase Total Protein Albumin Globulin Albumin/Globulin Ratio Lipase Urine Color Yellow Urine Clarity Hazy Urine pH 5.0 Ur Specific [place] 1.027 Urine Protein Negative Urine Glucose (UA) Normal Urine Ketones Trace Urine Blood Negative Urine Nitrate Negative Urine Bilirubin Negative Urine Urobilinogen Normal Ur Leukocyte Esterase Neg Urine WBC (Auto) 1 Urine RBC (Auto) 1 Ur Squamous Epith Cells 1 Urine Bacteria Rare Urine HCG, Qual Negative Stool Occult Blood Blood Type Antibody Screen 10/27/18 10/27/18 10/27/18 23:04 23:04 23:04 WBC RBC Hgb Hct MCV MCH MCHC RDW Plt Count MPV Neut % (Auto) Lymph % (Auto) [place] % (Auto) Eos % (Auto) Baso % (Auto) Neut # (Auto) Lymph # (Auto) [place] # (Auto) Eos # (Auto) Baso # (Auto) PT INR APTT Sodium 137 Potassium 3.6 Chloride 103 Carbon Dioxide 26 Anion Gap 12 BUN 27 H Creatinine 0.7 Est GFR ( Amer) > 60 Est GFR (Non-Af Amer) > 60 Random Glucose 98 Calcium 9.2 Total Bilirubin 0.3 AST 22 ALT 16 Alkaline Phosphatase 63 Total Protein 7.4 Albumin 4.3 Globulin 3.1 Albumin/Globulin Ratio 1.4 Lipase 62 Urine Color Urine Clarity Urine pH Ur Specific [place] Urine Protein Urine Glucose (UA) Urine Ketones Urine Blood Urine Nitrate Urine Bilirubin Urine Urobilinogen Ur Leukocyte Esterase Urine WBC (Auto) Urine RBC (Auto) Ur Squamous Epith Cells Urine Bacteria Urine HCG, Qual Stool Occult Blood Positive H Blood Type O NEGATIVE Antibody Screen Negative
[2018-10-29 06:56] LABS: BASO # 0.1 K/uL (0.0-0.2); BASO % 1.3 % (0.0-2.0); EOS # 0.2 K/uL (0.0-0.7); EOS % 3.7 % (0.0-4.0); LYMPH # 2.7 K/uL (1.0-4.3); LYMPH % 41.8 % (20.0-40.0); MEAN CELL VOLUME 95.3 fL (81.0-99.0); MEAN CORPUSCULAR HEMOGLOBIN 32.6 pg (27.0-31.0); MEAN CORPUSCULAR HGB CONC 34.2 g/dL (33.0-37.0); MEAN PLATELET VOLUME 8.8 fL (7.2-11.7); MONO # 0.3 K/uL (0.0-0.8); MONO % 4.8 % (0.0-10.0); NEUT # 3.2 K/uL (1.8-7.0); NEUT % 48.4 % (50.0-75.0); RBC 2.74 Mil/uL (3.80-5.20); RED CELL DISTRIBUTION WIDTH 12.6 % (11.5-14.5); WHITE BLOOD COUNT 6.5 K/uL (4.8-10.8)
[2018-10-29 07:19] LABS: HEMOGLOBIN 8.9 g/dL (11.0-16.0)
[2018-10-29 07:35] LABS: ALB/GLOB RATIO 1.5 (1.0-2.1); ALBUMIN 3.5 g/dL (3.5-5.0); ALT/SGPT 22 U/L (9-52); AST/SGOT 21 U/L (14-36); BLOOD UREA NITROGEN 16 mg/dL (7-17); CALCIUM 8.7 mg/dl (8.6-10.4); GFR NON-AFRICAN AMERICAN > 60
[2018-10-29] MEDS: Apap-Butalbital-Caffeine 325-50-40mg Tab PO PRN (09:14)
[2018-10-29] MEDS: Pantoprazole 40 mg EC Tab PO SCH (09:14)
[2018-10-29] MEDS: Fluticasone Nasal 50 mcg/Spray NS SCH (09:14)
--- NOTE | 2018-10-29 09:14 | CP.PCM.PN ---
Subjective - Date & Time of Evaluation Date of Evaluation: 10/29/18 Time of Evaluation: 09:13 - Subjective Subjective: 33 year old female with a past medical history of menorrhagia, pcos, and anemia who presents to the hospital after having three episodes of black tarry stools prior to coming in. Patient also reported some abdominal discomfort in conjun ction. Patient denies taking anything for the symptoms. Patient denies any headaches, fevers, chills, headaches, syncopal episodes, palpitations, or any other complaints. Medical history: menorrhagia, pcos, anemia Allergies: Denies Surgery history: denies Social history: social drinker. Denies tobacco use. Denies illicit drug use. Objective - Vital Signs/Intake and Output Vital Signs (last 24 hours): Temp Pulse Resp BP Pulse Ox 97.8 F 100 H 20 97/63 L 97 10/29/18 07:25 10/29/18 07:25 10/29/18 07:25 10/29/18 07:25 10/29/18 07:25 - Medications Medications: Current Medications Acetaminophen/Butalbital/Caffeine (Fioricet) 1 tab PO Q12 PRN PRN Reason: Pain, moderate (4-7) Last Admin: 10/28/18 13:34 Dose: 1 tab Duloxetine HCl (Cymbalta) 60 mg PO DAILY [facility] Last Admin: 10/28/18 10:24 Dose: 60 mg Fluticasone Propionate (Flonase) 1 spr NS DAILY [facility] Last Admin: 10/28/18 10:25 Dose: 1 spr Gabapentin (Neurontin) 600 mg PO TID [facility] Last Admin: 10/28/18 21:13 Dose: 600 mg Ondansetron HCl (Zofran Inj) 4 mg IVP Q8H PRN PRN Reason: Nausea/Vomiting Last Admin: 10/28/18 14:08 Dose: 4 mg Pantoprazole Sodium (Protonix Ec Tab) 40 mg PO DAILY [facility] Last Admin: 10/28/18 10:24 Dose: 40 mg Quetiapine Fumarate (Seroquel) 50 mg PO HS [facility] Last Admin: 10/28/18 21:14 Dose: 50 mg Valacyclovir HCl (Valtrex) 500 mg PO DAILY [facility]; Protocol Last Admin: 10/28/18 10:27 Dose: 500 mg - Labs Labs: 10/29/18 06:45 10/29/18 06:45 PT 11.7 SECONDS (9.7-12.2) 10/27/18 23:04 INR 1.1 10/27/18 23:04 APTT 34.1 SECONDS (21-34) H 10/27/18 23:04 - Head Exam Head Exam: ATRAUMATIC, NORMAL INSPECTION - Eye Exam Eye Exam: EOMI, Normal appearance Pupil Exam: NORMAL ACCOMODATION, PERRL - ENT Exam ENT Exam: Mucous Membranes Moist, Normal Exam - Neck Exam Neck Exam: Normal Inspection - Respiratory Exam Respiratory Exam: Clear to Ausculation Bilateral, NORMAL BREATHING PATTERN - Cardiovascular Exam Cardiovascular Exam: +S1, +S2 - GI/Abdominal Exam GI & Abdominal Exam: Soft, Normal Bowel Sounds - Neurological Exam Neurological Exam: Alert, Awake, CN II-XII Intact, Normal Gait, Oriented x3 - Psychiatric Exam Psychiatric exam: Normal Affect, Normal Mood - Skin Skin Exam: Dry, Intact, Normal Color, Warm Assessment and Plan - Assessment and Plan (Free Text) Assessment: 33 year old female with a past medical history of bipolar disorder, herpes, gastroparesis admitted for abdominal pain. Plan: Abdominal pain Abdomen/pelvis ct:Findings may represent nonspecific acute infectious/inflammatory gastro enteritis and colitis in the appropriate clinical setting. GI consulted Dr. Pacheco consulted--> Help appreciated. -Pt stable at this time with no active gI bleeding -Hgb stable, rectal exam negative -No plan for endoscopic evaluation -Dc PPI drip -Can start po PPI -Advance diet for small frequent meals -Pt needs to folow up with primary GI doctor -Please call with any questions or concerns Medications: Zofran 4mg IVP Q8H PRN Anemia Baseline in 12's. Hemodynamically stable Hemoglobin 8.9 Iron studies ordered .Will f/u with results Medications: IV Ferriclet 125 ivp daily hx of Herpes -Continue Valtrex 500mg PO DAILY hx of Headaches -Continue Fioricet 1 tab PO Q12 PRN hx of Depression -Continue Cymbalta 60mg PO DAILY hx of Bipolar disorder -Continue Seroquel 50mg PO HS hx of Neuropathy -Continue Neurontin 600mg PO TID ppx -Protonix 40mg PO DAILY Plan discussed with Attending Dr. Joo Ewing, PGY-2
[2018-10-29 20:24] LABS: IRON 55 ug/dL (37-170)
[2018-10-29 20:34] LABS: % IRON SATURATION 16 (20-55); TOTAL IRON BINDING CAPACITY 335 ug/dL (250-450)
[2018-10-29 21:30] LABS: FOLATE > 20.0 ng/mL
--- NOTE | 2018-10-29 23:11 | CP.PCM.PN ---
Subjective - Date & Time of Evaluation Date of Evaluation: 10/29/18 - Subjective Subjective: patient seen today no nausea, no vomiting, no dizziness, no diarrhea, no fever no shortness of breath 33 year old female with a past medical history of menorrhagia, pcos, and anemia who presents to the hospital after having three episodes of black tarry stools prior to coming in. Patient also reported some abdominal discomfort in conjunction. Patient denies taking anything for the symptoms. Patient denies any headaches, fevers, chills, headaches, syncopal episodes, palpitations, or any other complaints. Medical history: menorrhagia, pcos, anemia Allergies: Denies Surgery history: denies Social history: social drinker. Denies tobacco use. Denies illicit drug use. Objective - Vital Signs/Intake and Output Vital Signs (last 24 hours): Temp Pulse Resp BP Pulse Ox 98.5 F 102 H 20 91/59 L 97 10/29/18 16:00 10/29/18 16:00 10/29/18 16:00 10/29/18 16:00 10/29/18 16:00 Intake and Output: 10/29/18 10/30/18 18:59 06:59 Intake Total 500 Balance 500 - Medications Medications: Current Medications Acetaminophen/Butalbital/Caffeine (Fioricet) 1 tab PO Q12 PRN PRN Reason: Pain, moderate (4-7) Last Admin: 10/29/18 09:14 Dose: 1 tab Duloxetine HCl (Cymbalta) 60 mg PO DAILY [facility] Last Admin: 10/29/18 09:14 Dose: 60 mg Ferric Sodium Gluconate Complex (Ferrlecit) 125 mg IVPB DAILY [facility] Stop: 11/07/18 10:01 Fluticasone Propionate (Flonase) 1 spr NS DAILY [facility] Last Admin: 10/29/18 09:14 Dose: 1 spr Gabapentin (Neurontin) 600 mg PO TID [facility] Last Admin: 10/29/18 18:06 Dose: 600 mg Ondansetron HCl (Zofran Inj) 4 mg IVP Q8H PRN PRN Reason: Nausea/Vomiting Last Admin: 10/28/18 14:08 Dose: 4 mg Pantoprazole Sodium (Protonix Ec Tab) 40 mg PO DAILY [facility] Last Admin: 10/29/18 09:14 Dose: 40 mg Quetiapine Fumarate (Seroquel) 50 mg PO HS [facility] Last Admin: 10/29/18 21:40 Dose: 50 mg Valacyclovir HCl (Valtrex) 500 mg PO DAILY [facility]; Protocol Last Admin: 10/29/18 09:14 Dose: 500 mg - Labs Labs: 10/29/18 06:45 10/29/18 06:45 PT 11.7 SECONDS (9.7-12.2) 10/27/18 23:04 INR 1.1 10/27/18 23:04 APTT 34.1 SECONDS (21-34) H 10/27/18 23:04 - Constitutional Appears: Well - Head Exam Head Exam: ATRAUMATIC, NORMAL INSPECTION, NORMOCEPHALIC - Eye Exam Eye Exam: EOMI, Normal appearance, PERRL Pupil Exam: NORMAL ACCOMODATION, PERRL - ENT Exam ENT Exam: Mucous Membranes Moist, Normal Exam - Neck Exam Neck Exam: Full ROM, Normal Inspection. absent: Lymphadenopathy - Respiratory Exam Respiratory Exam: Decreased Breath Sounds - Cardiovascular Exam Cardiovascular Exam: REGULAR RHYTHM, +S1, +S2 - GI/Abdominal Exam GI & Abdominal Exam: Soft, Diminished Bowel Sounds - Rectal Exam Rectal Exam: Deferred - Neurological Exam Neurological Exam: Oriented x3 Assessment and Plan (1) Abdominal pain Status: Acute (2) GI bleed Status: Acute (3) Hemoptysis Status: Acute (4) Nausea Status: Acute (5) Constipation Status: Acute (6) Pain of left thumb Status: Acute (7) Tenosynovitis, de Quervain Status: Acute (8) Vomiting Status: Acute - Assessment and Plan (Free Text) Plan: plan discussed with patient moderate complexity of care Hemoglobin 8.9 Hematocrit 26.1 cymbalta ferrlecit fioricet flonase neurontin protonix ec tab seroquel valtrex zofran inj medications reviewed vitals reviewed labs reviewed 33 year old female with a past medical history of bipolar disorder, herpes, gastroparesis admitted for abdominal pain. Plan: Abdominal pain Abdomen/pelvis ct:Findings may represent nonspecific acute infectious/inflammatory gastro enteritis and colitis in the appropriate clinical setting. GI consulted Dr. Pacheco consulted--> Help appreciated. -Pt stable at this time with no active gI bleeding -Hgb stable, rectal exam negative -No plan for endoscopic evaluation -Dc PPI drip -Can start po PPI -Advance diet for small frequent meals -Pt needs to folow up with primary GI doctor -Please call with any questions or concerns Medications: Zofran 4mg IVP Q8H PRN Anemia Baseline in 12's. Hemodynamically stable Hemoglobin 8.9 Iron studies ordered .Will f/u with results Medications: IV Ferriclet 125 ivp daily hx of Herpes -Continue Valtrex 500mg PO DAILY hx of Headaches -Continue Fioricet 1 tab PO Q12 PRN hx of Depression -Continue Cymbalta 60mg PO DAILY hx of Bipolar disorder -Continue Seroquel 50mg PO HS hx of Neuropathy -Continue Neurontin 600mg PO TID ppx -Protonix 40mg PO DAILY
[2018-10-30] MEDS: Fluticasone Nasal 50 mcg/Spray NS SCH (09:35)
[2018-10-30] MEDS: Pantoprazole 40 mg EC Tab PO SCH (09:36)
[2018-10-30] MEDS: Ferric Sodium Gluconat Complex 62.5 mg/5 ml Vial IVPB SCH (09:36)
--- NOTE | 2018-10-30 14:17 | CARD ---
APPROVED REPORT Date of service: 10/28/2018 EKG Measurement Heart [id number] <Conclusion> Normal sinus rhythm Normal ECG
[2018-10-30] MEDS: Apap-Butalbital-Caffeine 325-50-40mg Tab PO PRN (17:50)
[2018-10-30 19:23] LABS: BASO # 0.1 K/uL (0.0-0.2); BASO % 0.8 % (0.0-2.0); EOS # 0.2 K/uL (0.0-0.7); EOS % 2.5 % (0.0-4.0); HEMOGLOBIN 9.3 g/dL (11.0-16.0); LYMPH # 2.2 K/uL (1.0-4.3); LYMPH % 26.1 % (20.0-40.0); MEAN CELL VOLUME 96.2 fL (81.0-99.0); MEAN CORPUSCULAR HEMOGLOBIN 32.1 pg (27.0-31.0); MEAN CORPUSCULAR HGB CONC 33.4 g/dL (33.0-37.0); MEAN PLATELET VOLUME 8.9 fL (7.2-11.7); MONO # 0.4 K/uL (0.0-0.8); MONO % 5.1 % (0.0-10.0); NEUT # 5.6 K/uL (1.8-7.0); NEUT % 65.5 % (50.0-75.0); RBC 2.89 Mil/uL (3.80-5.20); RED CELL DISTRIBUTION WIDTH 12.8 % (11.5-14.5); WHITE BLOOD COUNT 8.6 K/uL (4.8-10.8)
--- NOTE | 2018-10-30 23:24 | CP.PCM.PN ---
Subjective - Date & Time of Evaluation Date of Evaluation: 10/30/18 - Subjective Subjective: no c/o vomiting, no diarrhea, no fever Objective - Vital Signs/Intake and Output Vital Signs (last 24 hours): Temp Pulse Resp BP Pulse Ox 98.1 F 87 20 96/61 L 94 L 10/30/18 08:12 10/30/18 17:30 10/30/18 08:12 10/30/18 08:12 10/30/18 08:12 Intake and Output: 10/30/18 10/31/18 18:59 06:59 Intake Total 120 Balance 120 - Medications Medications: Current Medications Acetaminophen/Butalbital/Caffeine (Fioricet) 1 tab PO Q12 PRN PRN Reason: Pain, moderate (4-7) Last Admin: 10/30/18 17:50 Dose: 1 tab Duloxetine HCl (Cymbalta) 60 mg PO DAILY [facility] Last Admin: 10/30/18 09:36 Dose: 60 mg Ferric Sodium Gluconate Complex (Ferrlecit) 125 mg IVPB DAILY [facility] Stop: 11/07/18 10:01 Last Admin: 10/30/18 09:36 Dose: 125 mg Fluticasone Propionate (Flonase) 1 spr NS DAILY [facility] Last Admin: 10/30/18 09:35 Dose: 1 spr Gabapentin (Neurontin) 600 mg PO TID [facility] Last Admin: 10/30/18 17:47 Dose: 600 mg Ondansetron HCl (Zofran Inj) 4 mg IVP Q8H PRN PRN Reason: Nausea/Vomiting Last Admin: 10/30/18 14:09 Dose: 4 mg Pantoprazole Sodium (Protonix Ec Tab) 40 mg PO DAILY [facility] Last Admin: 10/30/18 09:36 Dose: 40 mg Quetiapine Fumarate (Seroquel) 50 mg PO HS [facility] Last Admin: 10/30/18 21:42 Dose: 50 mg Valacyclovir HCl (Valtrex) 500 mg PO DAILY [facility]; Protocol Last Admin: 10/30/18 09:36 Dose: 500 mg - Labs Labs: 10/30/18 19:19 10/29/18 06:45 PT 11.7 SECONDS (9.7-12.2) 10/27/18 23:04 INR 1.1 10/27/18 23:04 APTT 34.1 SECONDS (21-34) H 10/27/18 23:04 Assessment and Plan (1) Abdominal pain Status: Acute (2) GI bleed Status: Acute (3) Hemoptysis Status: Acute (4) Nausea Status: Acute (5) Constipation Status: Acute (6) Pain of left thumb Status: Acute (7) Tenosynovitis, de Quervain Status: Acute (8) Vomiting Status: Acute - Assessment and Plan (Free Text) Plan: hemoglobin 9.3 Hematocrit 27.8 Fioricet Cymbalta Ferrlecit Flonase Neurontin Zofran Protonix Seroquel Valtrex Moderate to high complexity of care. Plan of care discussed with patient &/or family & staff. Medications reviewed and reconciled. Labs reviewed. Vitals reviewed.
[2018-10-31] MEDS: Ferric Sodium Gluconat Complex 62.5 mg/5 ml Vial IVPB SCH (09:27)
[2018-10-31] MEDS: Pantoprazole 40 mg EC Tab PO SCH (09:27)
[2018-10-31] MEDS: Fluticasone Nasal 50 mcg/Spray NS SCH (09:28)
--- NOTE | 2018-10-31 11:12 | CP.PCM.PN ---
Subjective - Date & Time of Evaluation Date of Evaluation: 10/31/18 - Subjective Subjective: no c/o vomiting, no diarrhea, no fever Objective - Vital Signs/Intake and Output Vital Signs (last 24 hours): Temp Pulse Resp BP Pulse Ox 98.1 F 73 20 101/65 96 10/31/18 07:00 10/31/18 09:00 10/31/18 07:00 10/31/18 07:00 10/31/18 07:00 - Medications Medications: Current Medications Acetaminophen/Butalbital/Caffeine (Fioricet) 1 tab PO Q12 PRN PRN Reason: Pain, moderate (4-7) Last Admin: 10/30/18 17:50 Dose: 1 tab Duloxetine HCl (Cymbalta) 60 mg PO DAILY [facility] Last Admin: 10/31/18 09:28 Dose: 60 mg Ferric Sodium Gluconate Complex (Ferrlecit) 125 mg IVPB DAILY [facility] Stop: 11/07/18 10:01 Last Admin: 10/31/18 09:27 Dose: 125 mg Fluticasone Propionate (Flonase) 1 spr NS DAILY [facility] Last Admin: 10/31/18 09:28 Dose: 1 spr Gabapentin (Neurontin) 600 mg PO TID [facility] Last Admin: 10/31/18 09:28 Dose: 600 mg Ondansetron HCl (Zofran Inj) 4 mg IVP Q8H PRN PRN Reason: Nausea/Vomiting Last Admin: 10/30/18 14:09 Dose: 4 mg Pantoprazole Sodium (Protonix Ec Tab) 40 mg PO DAILY [facility] Last Admin: 10/31/18 09:27 Dose: 40 mg Quetiapine Fumarate (Seroquel) 50 mg PO HS [facility] Last Admin: 10/30/18 21:42 Dose: 50 mg Valacyclovir HCl (Valtrex) 500 mg PO DAILY [facility]; Protocol Last Admin: 10/31/18 09:28 Dose: 500 mg - Labs Labs: 10/30/18 19:19 10/29/18 06:45 PT 11.7 SECONDS (9.7-12.2) 10/27/18 23:04 INR 1.1 10/27/18 23:04 APTT 34.1 SECONDS (21-34) H 10/27/18 23:04 Assessment and Plan (1) Abdominal pain Status: Acute (2) GI bleed Status: Acute (3) Hemoptysis Status: Acute (4) Nausea Status: Acute (5) Constipation Status: Acute (6) Pain of left thumb Status: Acute (7) Tenosynovitis, de Quervain Status: Acute (8) Vomiting Status: Acute - Assessment and Plan (Free Text) Plan: hemoglobin 9.3 Hematocrit 27.8 Fioricet Cymbalta Ferrlecit Flonase Neurontin Zofran Protonix Seroquel Valtrex Moderate to high complexity of care. Plan of care discussed with patient &/or family & staff. Medications reviewed and reconciled. Labs reviewed. Vitals reviewed.
[2018-10-31] MEDS: Apap-Butalbital-Caffeine 325-50-40mg Tab PO PRN (12:35)
[2018-11-01 07:41] VITALS: TEMP 98.2
--- NOTE | 2018-11-01 08:26 | CP.PCM.PN ---
"Subjective - Date & Time of Evaluation Date of Evaluation: 11/01/18 Time of Evaluation: 08:25 - Subjective Subjective: Progress Note for Dr. Joo Mix Service Patient seen and examined at bedside. Patient denies any fevers, chills, headaches, fatigue, abdominal pain , changes in vision, palpitations, or any other complaints. Objective - Vital Signs/Intake and Output Vital Signs (last 24 hours): Temp Pulse Resp BP Pulse Ox 98.2 F 88 20 96/63 L 94 L 11/01/18 07:15 11/01/18 07:15 11/01/18 07:15 11/01/18 07:15 11/01/18 07:15 - Medications Medications: Current Medications Acetaminophen/Butalbital/Caffeine (Fioricet) 1 tab PO Q12 PRN PRN Reason: Pain, moderate (4-7) Last Admin: 10/31/18 12:35 Dose: 1 tab Dicyclomine HCl (Bentyl) 20 mg PO Q8 PRN PRN Reason: GI distress Last Admin: 10/31/18 22:06 Dose: 20 mg Duloxetine HCl (Cymbalta) 60 mg PO DAILY [facility] Last Admin: 10/31/18 09:28 Dose: 60 mg Ferric Sodium Gluconate Complex (Ferrlecit) 125 mg IVPB DAILY [facility] Stop: 11/07/18 10:01 Last Admin: 10/31/18 09:27 Dose: 125 mg Fluticasone Propionate (Flonase) 1 spr NS DAILY [facility] Last Admin: 10/31/18 09:28 Dose: 1 spr Gabapentin (Neurontin) 600 mg PO TID [facility] Last Admin: 10/31/18 17:43 Dose: 600 mg Ondansetron HCl (Zofran Inj) 4 mg IVP Q8H PRN PRN Reason: Nausea/Vomiting Last Admin: 10/30/18 14:09 Dose: 4 mg Pantoprazole Sodium (Protonix Ec Tab) 40 mg PO DAILY [facility] Last Admin: 10/31/18 09:27 Dose: 40 mg Quetiapine Fumarate (Seroquel) 50 mg PO HS [facility] Last Admin: 10/31/18 22:03 Dose: 50 mg Valacyclovir HCl (Valtrex) 500 mg PO DAILY [facility]; Protocol Last Admin: 10/31/18 09:28 Dose: 500 mg - Labs Labs: 10/30/18 19:19 10/29/18 06:45 PT 11.7 SECONDS (9.7-12.2) 10/27/18 23:04 INR 1.1 10/27/18 23:04 APTT 34.1 SECONDS (21-34) H 10/27/18 23:04 - Head Exam Head Exam: ATRAUMATIC, NORMAL INSPECTION - Eye Exam Eye Exam: EOMI, Normal appearance, PERRL. absent: Periorbital tenderness Pupil Exam: NORMAL ACCOMODATION, PERRL. absent: Irregular, Unequal - ENT Exam ENT Exam: Mucous Membranes Moist, Normal Oropharynx - Respiratory Exam Respiratory Exam: Clear to Ausculation Bilateral, NORMAL BREATHING PATTERN. absent: Chest Wall Tenderness, Prolonged Expiratory Phase, Respiratory Distress - Cardiovascular Exam Cardiovascular Exam: REGULAR RHYTHM, +S1, +S2 - Extremities Exam Extremities Exam: Full ROM, Normal Inspection. absent: Pedal Edema - Back Exam Back Exam: NORMAL INSPECTION. absent: CVA tenderness (R), paraspinal tenderness - Neurological Exam Neurological Exam: Alert, Awake, Oriented x3 - Psychiatric Exam Psychiatric exam: Normal Affect, Normal Mood. absent: Depressed - Skin Skin Exam: Dry, Intact, Normal Color Assessment and Plan - Assessment and Plan (Free Text) Plan: 33 year old female with a past medical history of bipolar disorder, herpes, gas troparesis admitted for abdominal pain. Plan: Abdominal pain Abdomen/pelvis ct:Findings may represent nonspecific acute infectious/inflammatory gastro enteritis and colitis in the appropriate clinical setting. GI consulted Dr. Pacheco consulted--> Help appreciated. -Pt stable at this time with no active gI bleeding -Hgb stable, rectal exam negative -No plan for endoscopic evaluation -Dc PPI drip -Can start po PPI -Advance diet for small frequent meals -Pt needs to folow up with primary GI doctor -Please call with any questions or concerns Medications: Zofran 4mg IVP Q8H PRN Anemia Baseline in 12's. Hemodynamically stable Hemoglobin 9.3 FE:55| TIBC:335|%Sat:16 Medications: IV Ferriclet 125 ivp daily hx of Herpes -Continue Valtrex 500mg PO DAILY hx of Headaches -Continue Fioricet 1 tab PO Q12 PRN hx of Depression -Continue Cymbalta 60mg PO DAILY hx of Bipolar disorder -Continue Seroquel 50mg PO HS hx of Neuropathy -Continue Neurontin 600mg PO TID ppx -Protonix 40mg PO DAILY Dispo: Awaiting repeat CBC. Possible discharge tomorrow. Plan discussed with Attending Dr. Joo Ewing, PGY-2"
[2018-11-01] MEDS: Ferric Sodium Gluconat Complex 62.5 mg/5 ml Vial IVPB SCH (09:38)
[2018-11-01] MEDS: Fluticasone Nasal 50 mcg/Spray NS SCH (09:40)
[2018-11-01] MEDS: Pantoprazole 40 mg EC Tab PO SCH (09:40)
[2018-11-01] MEDS: Apap-Butalbital-Caffeine 325-50-40mg Tab PO PRN (12:38)
[2018-11-01 14:16] LABS: BASO # 0.1 K/uL (0.0-0.2); BASO % 1.2 % (0.0-2.0); EOS # 0.2 K/uL (0.0-0.7); EOS % 2.4 % (0.0-4.0); LYMPH # 2.9 K/uL (1.0-4.3); LYMPH % 32.9 % (20.0-40.0); MEAN CELL VOLUME 96.5 fL (81.0-99.0); MEAN CORPUSCULAR HEMOGLOBIN 32.1 pg (27.0-31.0); MEAN CORPUSCULAR HGB CONC 33.3 g/dL (33.0-37.0); MONO # 0.5 K/uL (0.0-0.8); MONO % 6.2 % (0.0-10.0); NEUT % 57.3 % (50.0-75.0); RBC 3.1 Mil/uL (3.80-5.20); RED CELL DISTRIBUTION WIDTH 12.7 % (11.5-14.5); WHITE BLOOD COUNT 8.8 K/uL (4.8-10.8)
[2018-11-01 16:58] VITALS: BP 100/88; PULSE 90; O2SAT 95
--- NOTE | 2018-11-01 22:50 | CP.PCM.DIS ---
"Provider - Provider Date of Admission: 10/28/18 00:07 Attending physician: Divya Mix MD Time Spent in preparation of Discharge (in minutes): 25 Diagnosis - Discharge Diagnosis (1) Abdominal pain Status: Acute (2) GI bleed Status: Acute (3) Hemoptysis Status: Acute (4) Nausea Status: Acute (5) Constipation Status: Acute (6) Pain of left thumb Status: Acute (7) Tenosynovitis, de Quervain Status: Acute (8) Vomiting Status: Acute Hospital Course - Lab Results Lab Results: Most Recent Lab Values WBC 8.8 K/uL (4.8-10.8) 11/01/18 13:53 RBC 3.10 Mil/uL (3.80-5.20) L 11/01/18 13:53 Hgb 10.0 g/dL (11.0-16.0) L 11/01/18 13:53 Hct 29.9 % (34.0-47.0) L 11/01/18 13:53 MCV 96.5 fL (81.0-99.0) 11/01/18 13:53 MCH 32.1 pg (27.0-31.0) H 11/01/18 13:53 MCHC 33.3 g/dL (33.0-37.0) 11/01/18 13:53 RDW 12.7 % (11.5-14.5) 11/01/18 13:53 Plt Count 285 K/uL (130-400) 11/01/18 13:53 MPV 9.0 fL (7.2-11.7) 11/01/18 13:53 Neut % (Auto) 57.3 % (50.0-75.0) 11/01/18 13:53 Lymph % (Auto) 32.9 % (20.0-40.0) 11/01/18 13:53 [place] % (Auto) 6.2 % (0.0-10.0) 11/01/18 13:53 Eos % (Auto) 2.4 % (0.0-4.0) 11/01/18 13:53 Baso % (Auto) 1.2 % (0.0-2.0) 11/01/18 13:53 Neut # (Auto) 5.0 K/uL (1.8-7.0) 11/01/18 13:53 Lymph # (Auto) 2.9 K/uL (1.0-4.3) 11/01/18 13:53 [place] # (Auto) 0.5 K/uL (0.0-0.8) 11/01/18 13:53 Eos # (Auto) 0.2 K/uL (0.0-0.7) 11/01/18 13:53 Baso # (Auto) 0.1 K/uL (0.0-0.2) 11/01/18 13:53 Retic Count 2.4 % (0.5-1.5) H 10/29/18 19:58 PT 11.7 SECONDS (9.7-12.2) 10/27/18 23:04 INR 1.1 10/27/18 23:04 APTT 34.1 SECONDS (21-34) H 10/27/18 23:04 Sodium 140 mmol/L (132-148) 10/29/18 06:45 Potassium 3.7 mmol/L (3.6-5.2) 10/29/18 06:45 Chloride 106 mmol/L (98-107) 10/29/18 06:45 Carbon Dioxide 25 mmol/L (22-30) 10/29/18 06:45 Anion Gap 12 (10-20) 10/29/18 06:45 BUN 16 mg/dL (7-17) 10/29/18 06:45 Creatinine 0.8 mg/dL (0.7-1.2) 10/29/18 06:45 Est GFR ( Amer) > 60 10/29/18 06:45 Est GFR (Non-Af Amer) > 60 10/29/18 06:45 Random Glucose 80 mg/dL (65-105) 10/29/18 06:45 Calcium 8.7 mg/dl (8.6-10.4) 10/29/18 06:45 Iron 55 ug/dL (37-170) 10/29/18 19:58 TIBC 335 ug/dL (250-450) 10/29/18 19:58 % Saturation 16 (20-55) L 10/29/18 19:58 Transferrin 228.96 mg/dL (206-381) 10/29/18 19:58 Total Bilirubin 0.2 mg/dL (0.2-1.3) 10/29/18 06:45 AST 21 U/L (14-36) 10/29/18 06:45 ALT 22 U/L (9-52) 10/29/18 06:45 Alkaline Phosphatase 50 U/L (38-126) 10/29/18 06:45 Lactate Dehydrogenase 320 U/L (313-618) 10/29/18 19:58 Total Protein 5.8 g/dL (6.3-8.3) L 10/29/18 06:45 Albumin 3.5 g/dL (3.5-5.0) 10/29/18 06:45 Globulin 2.3 gm/dL (2.2-3.9) 10/29/18 06:45 Albumin/Globulin Ratio 1.5 (1.0-2.1) 10/29/18 06:45 Lipase 62 U/L (23-300) 10/27/18 23:04 Vitamin B12 442 pg/mL (239-931) 10/29/18 19:58 Folate > 20.0 ng/mL 10/29/18 19:58 Urine Color Yellow (YELLOW) 10/27/18 22:26 Urine Clarity Hazy (Clear) 10/27/18 22:26 Urine pH 5.0 (5.0-8.0) 10/27/18 22:26 Ur Specific [place] 1.027 (1.003-1.030) 10/27/18 22:26 Urine Protein Negative mg/dL (NEGATIVE) 10/27/18 22:26 Urine Glucose (UA) Normal mg/dL (Normal) 10/27/18 22:26 Urine Ketones Trace mg/dL (NEGATIVE) 10/27/18 22:26 Urine Blood Negative (NEGATIVE) 10/27/18 22:26 Urine Nitrate Negative (NEGATIVE) 10/27/18 22:26 Urine Bilirubin Negative (NEGATIVE) 10/27/18 22:26 Urine Urobilinogen Normal mg/dL (0.2-1.0) 10/27/18 22:26 Ur Leukocyte Esterase Neg Andrea/uL (Negative) 10/27/18 22:26 Urine WBC (Auto) 1 /hpf (0-5) 10/27/18 22:26 Urine RBC (Auto) 1 /hpf (0-3) 10/27/18 22:26 Ur Squamous Epith Cells 1 /hpf (0-5) 10/27/18 22:26 Urine Bacteria Rare (<OCC) 10/27/18 22:26 Urine HCG, Qual Negative (NEGATIVE) 10/27/18 22:26 Stool Occult Blood Positive (NEGATIVE) H 10/27/18 23:04 Blood Type O NEGATIVE 10/27/18 23:04 Antibody Screen Negative 10/27/18 23:04 - Hospital Course Hospital Course: 33 year old female with a past medical history of bipolar disorder, herpes, gastroparesis admitted for abdominal pain. Abdominal pain Abdomen/pelvis ct:Findings may represent nonspecific acute infectious/inflammatory gastro enteritis and colitis in the appropriate clinical setting. GI consulted Dr. Pacheco consulted--> Help appreciated. -Pt stable at this time with no active gI bleeding -Hgb stable, rectal exam negative -No plan for endoscopic evaluation -Dc PPI drip -Can start po PPI -Advance diet for small frequent meals -Pt needs to folow up with primary GI doctor -Please call with any questions or concerns Medications: Zofran 4mg IVP Q8H PRN Anemia Baseline in 12's. Hemodynamically stable Hemoglobin 9.3 FE:55| TIBC:335|%Sat:16 Medications: IV Ferriclet 125 ivp daily hx of Herpes -Continue Valtrex 500mg PO DAILY hx of Headaches -Continue Fioricet 1 tab PO Q12 PRN hx of Depression -Continue Cymbalta 60mg PO DAILY hx of Bipolar disorder -Continue Seroquel 50mg PO HS hx of Neuropathy -Continue Neurontin 600mg PO TID ppx -Protonix 40mg PO DAILY Dispo: Awaiting repeat CBC. Possible discharge tomorrow. followupiwth pmd in [address] mackey for further wrk up of egd finding and bleeidng and also anemia pt undestnad boyfriend is also present rpt cbc ok to discharge Discharge Exam - Head Exam Head Exam: ATRAUMATIC, NORMAL INSPECTION - Eye Exam Eye Exam: EOMI, Normal appearance, PERRL - ENT Exam ENT Exam: Normal Exam - Neck Exam Neck exam: Full Rom - Respiratory Exam Respiratory Exam: Decreased Breath Sounds, Rales - Cardiovascular Exam Cardiovascular Exam: REGULAR RHYTHM, +S1, +S2 - GI/Abdominal Exam GI & Abdominal Exam: Diminished Bowel Sounds, Soft - Rectal Exam Rectal Exam: Deferred - Neurological Exam Neurological exam: Oriented x3 Discharge Plan - Discharge Medications Prescriptions: DULoxetine [Cymbalta] 60 mg PO DAILY #30 ecc Omeprazole 40 mg PO DAILY #30 capsule. QUEtiapine [SEROquel] 50 mg PO DAILY #30 tab valACYclovir [Valtrex] 500 mg PO DAILY #30 tab - Follow Up Plan Condition: FAIR Disposition: HOME/ ROUTINE Instructions: Low Cholesterol, Saturated Fat, and Trans Fat Diet , Gastrointes tinal Bleeding (DC), Nausea and Vomiting, Adult (DC), Omeprazole, Quetiapine, Valacyclovir, Acute Abdominal Pain (DC) Additional Instructions: Discharge Instructions: 1.F/u with PMD within 5 days of discharge. 2.F/u with OBGYN within 5 days of discharge. 3.Return to hospital for any new or worsening symptoms. Medications: 1.Valtrex 500mg PO DAILY, #30, No refills 2.Seroquel 50mg PO DAILY, #30 , No refills 3.Omeprazole 40mg PO DAILY, #30, No refills 4.Cymbalta 60mg PO DAILY, #30, No refills. Referrals: Armand Pacheco MD [Staff Provider] - Michelle Mix MD [Staff Provider] -"
== END 2018-11-01 18:41 | disposition home or self-care (01) | DRG 175 ==
LOC: C.ER 22:09 → C.6T 10-28 00:07
PROVIDERS: ADMIT Internal Medicine Nephrology; ATTEND Internal Medicine Nephrology
DX: K92.2 Gastrointestinal hemorrhage, unspecified (principal); A09 Infectious gastroenteritis and colitis, unspecified; K59.00 Constipation, unspecified; K31.84 Gastroparesis; G89.29 Other chronic pain; F31.9 Bipolar disorder, unspecified; B00.9 Herpesviral infection, unspecified